=== PATIENT | female | born 1940 | race Caucasian/White ===

== ENCOUNTER → 2020-06-01 | Outpatient (CLI) | payer MEDICARE, OTHER ==
[~2020-06-01] MED LIST: ACIPHEX; ACIPHEX20 MG PO; ASPI325T6 PO; BENADRYL25 M2 PO; CALCIUM + D 5001 TAB PO; CELEBREX; CLARITIN 1010 MG/TAB PO; CLIMARA 0.1 PATCH.WK TD; CLIMARA0.05 MG/24 TD; DOXYCYCLINE 10100 MG PO; FLAXSEED MEAL1 POW; FOLIC ACID 40400 MCG PO; HCTZ 25MG TAB25 MG PO; IMURAN 50MG TAB50 MG PO; IRON TABLETS325 MG PO; LOPRESSOR 550 MG/TAB PO; MAGNESIUM200 MG PO; MOBIC15 MG PO; NORCO 325 MG-7.1 TAB PO; THERAGRAN1 TA1 PO; TOFRANIL 25MG T25 MG PO; ULTRAM 50MG TAB50 MG PO; VITAMIN C500 MG PO
== END ==
LOC: COL.RAD 10:06
DX: M48.02 Spinal stenosis, cervical region (principal)

== ENCOUNTER 2020-10-09 09:20 | Day surgery (SDC) | payer MEDICARE, OTHER ==
[~2020-10-09] VITALS: Ht 162.6 cm; Wt 84.4 kg
[2020-10-09] VITALS (9 sets, daily range): BP systolic 112–144; BP diastolic 59–68; PULSE 72–81; TEMP 97.4–97.5
[2020-10-09] MEDS ORDERED: IMURAN 50MG TAB50 MG PO (10:32)
[2020-10-09] MEDS ORDERED: CELEBREX 200MG200 MG PO (10:33)
[2020-10-09] MEDS ORDERED: CALCIUM CITRAT950 MG PO (10:33)
[2020-10-09] MEDS ORDERED: BENADRYL25 M2 PO (10:34)
[2020-10-09] MEDS ORDERED: DOXYCYCLINE HY100 MG PO (10:35)
[2020-10-09] MEDS ORDERED: CLIMARA 0.1 PATCH.WK TD (10:36)
[2020-10-09] MEDS ORDERED: FLAX SEED POWDER PO (10:38)
[2020-10-09] MEDS ORDERED: HCTZ 25MG TAB25 MG PO (10:39)
[2020-10-09] MEDS ORDERED: TOFRANIL 25MG T25 MG PO (10:39)
[2020-10-09] MEDS ORDERED: CLARITIN 1010 MG/TAB PO (10:39)
[2020-10-09] MEDS ORDERED: MAG-OX 400400 MG/TAB PO (10:40)
[2020-10-09] MEDS ORDERED: MULTIVITAMIN SEN PO (10:41)
[2020-10-09] MEDS ORDERED: TOPROL XL 50MG50 MG PO (10:41)
[2020-10-09] MEDS ORDERED: COLY-MYCIN S OT10 M1 OT (10:42)
[2020-10-09] MEDS ORDERED: ULTRAM 50MG TAB50 MG PO (10:43)
[2020-10-09] MEDS ORDERED: PROTONIX20 MG PO (10:43)
[2020-10-09] MEDS ORDERED: TRIAMCINOLONE AC0.13 TOP (10:44)
--- NOTE | 2020-10-09 10:45 | NUR ---
The patient amblated back to [facility] [facility] independently using a steady gait and appeared to tolerate the activity well. Vital signs obtained. Consent signed. Assessment completed. 20G IV started in left hand with one stick, LR infusing without difficulty. Daughter at bedside. Call light is within reach. Will continue to monitor the patient.
--- NOTE | 2020-10-09 15:20 | NUR ---
PATIENT ARRIVED TO ROOM 326 VIA BED FROM PACU. PATIENT SETTELED INTO ROOM. POST-OP VSS. PATIENT DROWSY BUT AROUSES EASILY. WILL CONTINUE TO MONITOR.
--- NOTE | 2020-10-09 15:50 | NUR ---
PATIENT IS DROWSY FROM SURGERY BUT AROUSES EASILY. PATIENT IS A&OX4, SHIFT ASSESSMENT COMPLETE. POST-OP VSS. 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 PATIENT DENIES COMPLAINTS OF PAIN. SCD'S TO BLE. ALCOCER CATHETER DRAINING TO DEPENDENT DRAINAGE. PATIENT TOLERATING SIPS AND CHIPS. CALL LIGHT WITHIN REACH. WILL CONTINUE TO MONITOR.
--- NOTE | 2020-10-09 17:54 | NUR ---
PATIENT STATES THAT SHE'S FEELING NAUSEATED AND IS NOT WANTING TO EAT HER DINNER TRAY AT THIS TIME. PATIENT GIVEN PRN ZOFRAN AND EDUCATED TO TAKE THE CLEAR LIQUIDS SLOW AND EASY WHEN SHE FEELS THAT HER NAUSEA HAS SETTELED DOWN.
--- NOTE | 2020-10-09 18:50 | NUR ---
SHIFT REPORT GIVEN TO TONYA GARCIA.
--- NOTE | 2020-10-09 19:45 | NUR ---
Pt. sitting up in bed. Pt. is A&OX3, assessment complete. IV to lt. hand patent, IV fluids infusing per orders. Pt. denies pain at this time. Call light within reach.
[2020-10-10 00:02] VITALS: BP 120/60; PULSE 80; TEMP 97.7
[2020-10-10 04:51] VITALS: BP 145/68; PULSE 88; TEMP 97.8
--- NOTE | 2020-10-10 07:00 | NUR ---
Lying in bed with eyes closed. Opens eyes when name called out. Alert and oriented x4. Rates pain in abd 2/10 and describes as sore. Abd lap sites x5 with all edges well approximated, swiftset in place, no redness/swelling/discharge noted. Patient denies additional needs at this time.
[2020-10-10 08:00] VITALS: BP 140/66; PULSE 97; TEMP 97.9
--- NOTE | 2020-10-10 11:03 | NUR ---
Sitting up in chair texting on cell phone. Was up earlier and walked in the halls with this nurse without difficulty, gait slow but steady. Patient says that she feels good at this time. Hopes to go home later. Denies additional needs.
--- NOTE | 2020-10-10 11:31 | NUR ---
SW met with the patient to discuss discharge plan. The patient lives in [place] with her , Kb. She reports that her has advanced Parkinson's and that her daughters are with him now while she is here. She reports independence with ADLs and does not have any DME. The patient's PCP is Dr. William Lopez and she receives her medications from [facility]. She reports no difficulties obtaining her meds. The patient's DPOA-HC is in EMR and it designates her and the alternate is her daughter, Joaquina (ph#[phone]) Joaquina lives in [place], but will be up here until the end of the week to help take care of the patient and her . The patient plans to return home with her and two daughters upon discharge. She states that her daughters are taking turns staying with them until the end of October and possibly longer. No additional needs at this time. *Discharge plan: home with and daughters*
[2020-10-10 11:33] VITALS: BP 119/66; PULSE 87; TEMP 97.3
--- NOTE | 2020-10-10 12:30 | NUR ---
Review all discharge instructions with the patient and her daughter. Denies questions and verbalizes understanding to all. Signs discharge paperwork. Patient and daughter waiting on lunch to arrive and then when ready for discharge will use call light for assistance out.
--- NOTE | 2020-10-10 13:18 | NUR ---
First visit from the pheresis nurse. No needs right now.
--- NOTE | 2020-10-10 13:24 | NUR ---
Patient calls out that she is ready to be discharged. Patient assisted out to POV with all belongings by RAVIN Cummings.
== END 2020-10-10 13:30 | disposition home or self-care (01) ==
LOC: SDCO 09:20 → SURG 09:20 → INPTSU 09:20 → SURG 12:00 → EDSTATUS 12:00 → SURG 15:20 → INPTSU 15:20 → SURG 10-10 13:30 → SDCO 10-10 13:30
DX: N99.3 Prolapse of vaginal vault after hysterectomy (principal); J30.9 Allergic rhinitis, unspecified; I10 Essential (primary) hypertension; E78.00 Pure hypercholesterolemia, unspecified; E78.5 Hyperlipidemia, unspecified; K21.9 Gastro-esophageal reflux disease without esophagitis; M19.90 Unspecified osteoarthritis, unspecified site; Z90.89 Acquired absence of other organs; Z90.710 Acquired absence of both cervix and uterus; Z79.899 Other long term (current) drug therapy; Z88.5 Allergy status to narcotic agent; Z88.8 Allergy status to other drugs, medicaments and biological substances; Z91.041 Radiographic dye allergy status; Z91.013 Allergy to seafood; Z88.6 Allergy status to analgesic agent
CPT/HCPCS: OP; A4314; C1781; J0690; J1170; J1885; J2405; J2704; J3010; J7120